=== PATIENT | female | born 1975 | race Caucasian/White ===

== ENCOUNTER 2019-06-14 17:35 | Emergency (ER) | payer MEDICAID ==
[~2019-06-14] VITALS: Ht 162.6 cm; Wt 63.5 kg
[2019-06-14 17:39] VITALS: BP 112/81
--- NOTE | 2019-06-14 18:25 | Emergency Room Report ---
History of Present Illness General Chief Complaint: Alcohol Intoxication Source: Patient (Wen Guzman) Present Illness HPI 44-year-old female presents to the emergency department brought by ambulance for acute alcohol intoxication. Patient reports that she habitually drinks heavily and that she was drinking earlier today. Patient states she was recently told that she has cirrhosis of the liver. Patient denies abdominal pain she denies trauma or fall, nausea, vomiting, fevers or chills. Patient states that she recently was diagnosed with a UTI as well and was unable to fill the prescription for Keflex. Patient denies illicit drug use. She denies open wounds, bruises or areas of infection. She denies neck or back pain and denies headache or confusion. Patient states she has some mild tenderness along the right side of the ribs where she was recently diagnosed with rib cage contusion. No other aggravating or relieving factors at this time. Patient denies SI or HI she denies previous psychiatric hospitalizations and states she is not currently on any medications nor she supposed to be taking any medications. She reports she was accepted to [facility] but is not familiar with how to get there. She denies urinary frequency, urgency, hematuria or dysuria. (Wen Guzman) Allergies: Coded Allergies: ACETAMINOPHEN (Verified Allergy, Unknown, 06/14/19) HYDROCODONE (Verified Allergy, Unknown, 06/14/19) Patient History Past Medical History: see triage record Past Surgical History: none Pertinent Family History: none Now: No Reviewed Nursing Documentation: PMH: Agreed; PSxH: Agreed (Wen Guzman) Review of Systems All Other Systems: negative except mentioned in HPI (Wen Guzman) Physical Exam Vital Signs Date Time Temp Pulse Resp B/P (MAP) Pulse Ox O2 Delivery O2 Flow Rate FiO2 06/14/19 17:30 97.9 81 16 112/81 (91) 99 Room Air Sp02 EP Interpretation: reviewed, normal General Appearance: no apparent distress, alert, GCS 15, non-toxic Head: normocephalic, atraumatic Eyes: bilateral eye normal inspection, bilateral eye PERRL ENT: hearing grossly normal, normal voice Neck: full range of motion, no bony tend Respiratory: lungs clear, normal breath sounds, speaking full sentences, other - ttp lateral right ribs. no flail chest. CTA bilat Cardiovascular #1: regular rate, rhythm, normal capillary refill Gastrointestinal: normal bowel sounds, non tender, soft, non-distended, no guarding Genitourinary: normal inspection, no CVA tenderness Musculoskeletal: back normal, normal range of motion, gait/station normal, non- tender Neurologic: alert, motor strength/tone normal, oriented x3 - Pt. able to answer complex questions with sufficient amount of detail despite being clinically inebriated, sensory intact, responsive, speech normal Psychiatric: judgement/insight normal, no suicidal/homicidal ideation, no delusions Skin: no rash, normal color, normal inspection Lymphatic: no adenopathy (Wen Guzman) Medical Decision Making PA Attestation Dr. Vaz is my supervising Physician whom patient management has been discussed with. Homeless Attestation I, The treating provider, Wen MELÉNDEZ, has assessed and agrees that patient is medically stable for discharge to an outpatient disposition. (Wen Guzman) Diagnostic Impression: Primary Impression: UTI (urinary tract infection) Qualified Codes: N30.01 - Acute cystitis with hematuria Additional Impression: Acute alcoholic intoxication Qualified Codes: F10.920 - Alcohol use, unspecified with intoxication, uncomplicated ER Course 44-year-old female presents to the emergency department brought by ambulance for acute alcohol intoxication. Patient reports that she habitually drinks heavily and that she was drinking earlier today. Patient states she was recently told that she has cirrhosis of the liver. Patient denies abdominal pain she denies trauma or fall, nausea, vomiting, fevers or chills. Patient states that she recently was diagnosed with a UTI as well and was unable to fill the prescription for Keflex. Patient denies illicit drug use. She denies open wounds, bruises or areas of infection. She denies neck or back pain and denies headache or confusion. Patient states she has some mild tenderness along the right side of the ribs where she was recently diagnosed with rib cage contusion. No other aggravating or relieving factors at this time. Patient denies SI or HI she denies previous psychiatric hospitalizations and states she is not currently on any medications nor she supposed to be taking any medications. She reports she was accepted to [facility] but is not familiar with how to get there. She denies urinary frequency, urgency, hematuria or dysuria. Ddx considered but are not limited to ETOH, Trauma, Syncope, dementia, OD Vital signs: are WNL, pt. is afebrile H&PE are most consistent with ETOH abuse. --pt. is NAD, pt. is alert, no obvious signs of trauma, able to ambulate to the water fountain and bathroom and back to her room on her own without assistance. ORDERS: -UA: POSITIVE FOR UTI -CBC: WNL -CMP: Elevated AST c/w alcoholic hepatitis. -Serum ETOH: 357 ED INTERVENTIONS: -Keflex PO Observance while she detoxifies. Pt. was allowed to sleep/rest. PT. became awake and alert x 3 Pt. is given multiple pages of homeless and alcohol rehabilitation services resource information. She is also given a small quantity of Keflex. DISCHARGE: At this time pt. is stable for d/c to home. Will provide printed patient care instructions, and any necessary prescriptions. Care plan and follow up instructions have been discussed with the patient prior to discharge. Labs Test 06/14/19 18:30 06/14/19 18:33 Urine Color Pale yellow Urine Appearance Cloudy Urine pH 6.5 (4.5-8.0) Urine Specific [place] 1.005 (1.005-1.035) Urine Protein Negative (NEGATIVE) Urine Glucose (UA) Negative (NEGATIVE) Urine Ketones Negative (NEGATIVE) Urine Blood 2+ (NEGATIVE) Urine Nitrite Negative (NEGATIVE) Urine Bilirubin Negative (NEGATIVE) Urine Urobilinogen Normal MG/DL (0.0-1.0) Urine Leukocyte Esterase 3+ (NEGATIVE) Urine RBC 5-10 /HPF (0 - 2) Urine WBC Tntc /HPF (0 - 2) Urine Squamous Epithelial Cells Moderate /LPF (NONE/OCC) Urine Bacteria Moderate /HPF (NONE) White Blood Count 9.0 K/UL (4.8-10.8) Red Blood Count 4.51 M/UL (4.20-5.40) Hemoglobin 11.7 G/DL (12.0-16.0) Hematocrit 37.7 % (37.0-47.0) Mean Corpuscular Volume 84 FL (80-99) Mean Corpuscular Hemoglobin 25.9 PG (27.0-31.0) Mean Corpuscular Hemoglobin Concent 30.9 G/DL (32.0-36.0) Red Cell Distribution Width 17.9 % (11.6-14.8) Platelet Count 259 K/UL (150-450) Mean Platelet Volume 5.1 FL (6.5-10.1) Neutrophils (%) (Auto) 62.7 % (45.0-75.0) Lymphocytes (%) (Auto) 32.0 % (20.0-45.0) Monocytes (%) (Auto) 3.4 % (1.0-10.0) Eosinophils (%) (Auto) 0.8 % (0.0-3.0) Basophils (%) (Auto) 1.2 % (0.0-2.0) Sodium Level 143 MMOL/L (136-145) Potassium Level 3.4 MMOL/L (3.5-5.1) Chloride Level 106 MMOL/L (98-107) Carbon Dioxide Level 24 MMOL/L (21-32) Anion Gap 13 mmol/L (5-15) Blood Urea Nitrogen 6 mg/dL (7-18) Creatinine 0.7 MG/DL (0.55-1.30) Estimat Glomerular Filtration Rate > 60 mL/min (>60) Glucose Level 88 MG/DL (74-106) Calcium Level 8.5 MG/DL (8.5-10.1) Total Bilirubin 0.3 MG/DL (0.2-1.0) Aspartate Amino Transf (AST/SGOT) 149 U/L (15-37) Alanine Aminotransferase (ALT/SGPT) 86 U/L (12-78) Alkaline Phosphatase 150 U/L (46-116) Total Protein 7.6 G/DL (6.4-8.2) Albumin 2.8 G/DL (3.4-5.0) Globulin 4.8 g/dL Albumin/Globulin Ratio 0.6 (1.0-2.7) Serum Alcohol 352 mg/dL (Wen Guzman) ER Course Patient signed out to me. She presents with alcohol intoxication. She slept through the night. Now awake. No slurred speech. Walking without any problem. Not suicidal or homicidal. No criteria for 5150. (Uvaldo Arteaga MD) Last Vital Signs Date Time Temp Pulse Resp B/P (MAP) Pulse Ox O2 Delivery O2 Flow Rate FiO2 06/14/19 17:39 81 16 Room Air 06/14/19 17:39 97.9 112/81 99 Status: improved (Wen Guzman) Status: improved (Uvaldo Arteaga MD) Disposition: HOME, SELF-CARE Condition: Improved Scripts Cephalexin* (KEFLEX*) 500 Mg Capsule 500 MG ORAL EVERY 12 HOURS for 7 Days, #14 CAP 0 Refills Prov: Wen Guzman 06/14/19 Referrals: NOT CHOSEN IPA/,REFERRING (PCP) Patient Instructions: Alcoholic Liver Disease, Alcohol Use Disorder Additional Instructions: Take medications as directed. _ Refrain from Excessive ALCOHOL CONSUMPTION Follow up with a Primary Care Provider in 3-5 days, even if your symptoms have resolved. --Please review list of primary care clinics, if you do not already have a primary care provider --Please review list of Alcohol Dependence Resources and Shelters Return sooner to ED if new symptoms occur, or current symptoms become worse. - Please note that this Emergency Department Report was dictated using [employer] of the legislative assembly technology software, occasionally this can lead to erroneous entry secondary to interpretation by the dictation equipment. Wen Guzman Jun 14, 2019 18:25 Uvaldo Arteaga MD Jun 15, 2019 04:00
[2019-06-14 18:40] LABS: BASOPHILS % (AUTO) 1.2 % (0.0-2.0); EOSINOPHILS % (AUTO) 0.8 % (0.0-3.0); HEMATOCRIT 37.7 % (37.0-47.0); HEMOGLOBIN 11.7 G/DL (12.0-16.0); MEAN CORPUSCULAR VOLUME 84 FL (80-99); MONOCYTES % (AUTO) 3.4 % (1.0-10.0); NEUTROPHILS % (AUTO) 62.7 % (45.0-75.0); PLATELET COUNT 259 K/UL (150-450); RED BLOOD COUNT 4.51 M/UL (4.20-5.40); RED CELL DISTRIBUTION WIDTH 17.9 % (11.6-14.8)
[2019-06-14 18:51] LABS: APPEARANCE,URINE CLOUDY; BILIRUBIN, URINE NEGATIVE (NEGATIVE); COLOR,URINE PALE YELLOW; GLUCOSE, URINE (UA) NEGATIVE (NEGATIVE); KETONES,URINE NEGATIVE (NEGATIVE); LEUKOCYTE ESTERASE ,URINE 3+ (NEGATIVE); NITRITE,URINE NEGATIVE (NEGATIVE); PH,URINE 6.5 (4.5-8.0); PROTEIN,URINE NEGATIVE (NEGATIVE); UROBILINOGEN,URINE NORMAL MG/DL (0.0-1.0)
[2019-06-14 18:56] LABS: ANION GAP 13 mmol/L (5-15); BLOOD UREA NITROGEN 6 mg/dL (7-18); CALCIUM 8.5 MG/DL (8.5-10.1); CARBON DIOXIDE 24 MMOL/L (21-32); CHLORIDE 106 MMOL/L (98-107); CREATININE 0.7 MG/DL (0.55-1.30); POTASSIUM 3.4 MMOL/L (3.5-5.1); SODIUM 143 MMOL/L (136-145)
[2019-06-14 19:02] LABS: ALANINE AMINOTRANSFERASE 86 U/L (12-78); ALBUMIN 2.8 G/DL (3.4-5.0); ALBUMIN/GLOBULIN RATIO 0.6 (1.0-2.7); ALKALINE PHOSPHATASE 150 U/L (46-116); ASPARTATE AMINO TRANSFERASE 149 U/L (15-37); BILIRUBIN,TOTAL 0.3 MG/DL (0.2-1.0)
[2019-06-14 19:30] VITALS: BP 115/72
[2019-06-14] MEDS ORDERED: Cephalexin 500mg cap ORAL ONE (19:30)
[2019-06-14] MEDS ORDERED: CEPHALEXIN500 MG ORAL (21:16)
[2019-06-14 22:16] VITALS: BP 121/75
[2019-06-15 01:20] VITALS: BP 119/69
[2019-06-15 06:24] VITALS: BP 143/87
[2019-06-15 06:30] VITALS: BP 143/87
== END 2019-06-15 06:30 | disposition home or self-care (01) ==
LOC: EDBD 17:35 → EMR 18:03
DX: N30.01 Acute cystitis with hematuria (principal); F10.920 Alcohol use, unspecified with intoxication, uncomplicated; Z88.6 Allergy status to analgesic agent; Z88.5 Allergy status to narcotic agent
CPT/HCPCS: 36415; 80053; 81001; 85025; 87086; G0480; Z7502; 99284

== ENCOUNTER 2019-06-15 12:50 | Emergency (ER) | payer MEDICAID ==
[~2019-06-15] VITALS: Ht 162.6 cm; Wt 63.5 kg
[2019-06-15 12:50] VITALS: BP 121/78
[~2019-06-15 12:50] MED LIST: CEPHALEXIN500 MG ORAL
--- NOTE | 2019-06-15 14:06 | Emergency Room Report ---
History of Present Illness General Chief Complaint: Alcohol Intoxication Source: Patient Present Illness HPI 44-year-old female with history of alcohol abuse brought in by the paramedics due to complaining of ingesting a lot of alcohol. Upon arrival patient screams and states that she told the paramedics not to come here as she was just discharged from [facility] early this morning. Patient does admit to drinking alcohol. Denies drug use. Denies pain, chest pain, shortness of breath, palpitation, and other associated symptoms. Patient is extremely rude to the staff, and is not allowing her nurse to start an IV line in her. Patient then eloped before IV was started Allergies: Coded Allergies: ACETAMINOPHEN (Verified Allergy, Unknown, 06/15/19) HYDROCODONE (Verified Allergy, Unknown, 06/14/19) Patient History Past Medical History: see triage record Past Surgical History: none Pertinent Family History: none Social History: Reports: alcohol use Now: No Immunizations: UTD Reviewed Nursing Documentation: PMH: Agreed; PSxH: Agreed Nursing Documentation-PMH Past Medical History: No History, Except For Review of Systems All Other Systems: negative except mentioned in HPI Physical Exam Vital Signs Date Time Temp Pulse Resp B/P (MAP) Pulse Ox O2 Delivery O2 Flow Rate FiO2 06/15/19 12:48 98.8 94 17 142/82 (102) 99 Room Air Sp02 EP Interpretation: reviewed, normal General Appearance: other - alcohol use Head: normocephalic, atraumatic Eyes: bilateral eye normal inspection, bilateral eye PERRL ENT: hearing grossly normal, normal pharynx, no angioedema, normal voice Neck: full range of motion, supple, thyroid normal, no meningismus, supple/symm /no masses Respiratory: chest non-tender, lungs clear, normal breath sounds, no rhonchi, no wheezing, speaking full sentences Cardiovascular #1: regular rate, rhythm, no edema, no murmur, normal capillary refill Gastrointestinal: non tender, soft Rectal: deferred Genitourinary: no CVA tenderness Musculoskeletal: back normal Neurologic: alert, motor strength/tone normal, oriented x3, sensory intact, responsive, speech normal Psychiatric: judgement/insight normal, memory normal, mood/affect normal Skin: no rash Lymphatic: no adenopathy Medical Decision Making PA Attestation All diagnoses and treatment plans were reviewed and discussed with my supervising physician Dr. Diaz Diagnostic Impression: Primary Impression: Eloped from emergency department ER Course 44-year-old female with history of alcohol abuse brought in by the paramedics due to complaining of ingesting a lot of alcohol. Upon arrival patient screams and states that she told the paramedics not to come here as she was just discharged from [facility] early this morning. Patient does admit to drinking alcohol. Denies drug use. Denies pain, chest pain, shortness of breath, palpitation, and other associated symptoms. Patient is extremely rude to the staff, and is not allowing her nurse to start an IV line in her. Patient then eloped before IV was started Ddx considered but are not limited to: generalized anxiety disorder, panic attack, depression with psychotic feature, bipolar disorder, drug overdose Vital signs: are WNL, pt. is afebrile H&PE are most consistent with: eloped, Alcohol use ORDERS: EtOH, tox screen ED INTERVENTIONS: NS bolus Since patient had a complete blood work earlier this morning no further blood work or imaging needed at this time. Patient eloped before IV line was started Last Vital Signs Date Time Temp Pulse Resp B/P (MAP) Pulse Ox O2 Delivery O2 Flow Rate FiO2 06/15/19 12:50 82 18 Room Air 06/15/19 12:50 98.1 121/78 06/15/19 12:48 99 Disposition: ELOPED Condition: Stable Referrals: NOT CHOSEN IPA/,REFERRING (PCP) Josie Hernandes Jun 15, 2019 14:06
[2019-06-15 14:28] VITALS: BP 121/78
== END 2019-06-15 14:28 | disposition home or self-care (01) ==
LOC: EDBD 12:50 → EMR 13:00
DX: F10.129 Alcohol abuse with intoxication, unspecified (principal); Z88.6 Allergy status to analgesic agent; Z88.5 Allergy status to narcotic agent; Z53.29 Procedure and treatment not carried out because of patient's decision for other reasons
CPT/HCPCS: 36415; 80307; G0480; Z7502; 99283; J2405

== ENCOUNTER 2019-06-15 17:36 | Emergency (ER) | payer MEDICAID ==
[~2019-06-15] VITALS: Ht 162.6 cm; Wt 68.0 kg
[2019-06-15 17:36] VITALS: BP 101/70
[2019-06-15 20:30] VITALS: BP 102/69
[2019-06-15 21:23] VITALS: BP 102/69
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
== END 2019-06-15 21:23 | disposition home or self-care (01) ==
LOC: EDBD 17:36 → EMR 18:00
DX: F10.929 Alcohol use, unspecified with intoxication, unspecified (principal); I48.91 Unspecified atrial fibrillation; Z88.6 Allergy status to analgesic agent; Z88.5 Allergy status to narcotic agent
CPT/HCPCS: 99282

== ENCOUNTER 2019-06-16 02:56 | Emergency (ER) | payer MEDICAID ==
[~2019-06-16] VITALS: Ht 162.6 cm; Wt 68.0 kg
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
[2019-06-16 03:04] VITALS: BP 136/90
--- NOTE | 2019-06-16 03:05 | NUR ---
ED Nurse Note: pt reports "you'd be proud of me, I didn't drink anything this time." she doest not appear to be in any distress, breathing is even and non-labored, pt lying in bed with eyes closed. will continue to monitor
--- NOTE | 2019-06-16 03:19 | Emergency Room Report ---
History of Present Illness General Chief Complaint: General Complaint Source: Patient Present Illness HPI Is a 44-year-old female who is an alcoholic. She also homeless. She was brought in by EMS with chief complaint of altered mental status. Patient has no complaints here. She states she was at [facility] and they called 911. Per EMS he did not leave the facility still they called 911. Patient says she was go to hospital. Here she denies it. Patient says she was not being belligerent or causing any problem. She is want to stay there. She denies suicidal thoughts homicidal thoughts he denies any pain. Allergies: Coded Allergies: ACETAMINOPHEN (Verified Allergy, Unknown, 06/15/19) HYDROCODONE (Verified Allergy, Unknown, 06/14/19) Patient History Past Medical History: see triage record, old chart reviewed Past Surgical History: other Pertinent Family History: none Social History: Reports: alcohol use Now: No Immunizations: other Reviewed Nursing Documentation: PMH: Agreed; PSxH: Agreed Nursing Documentation-PMH Hx Cardiac Problems: Yes - AFIB; SUBSTANCE ABUSE Review of Systems Eye: Denies: eye pain, blurred vision ENT: Denies: ear pain, nose congestion, throat swelling Respiratory: Denies: cough, shortness of breath Cardiovascular: Denies: chest pain, palpitations Gastrointestinal: Denies: abdominal pain, diarrhea, nausea, vomiting Musculoskeletal: Denies: back pain, joint pain Skin: Denies: rash Neurological: Denies: headache, numbness Endocrine: Denies: increased thirst, increased urine Hematologic/Lymphatic: Denies: easy bruising All Other Systems: negative except mentioned in HPI Physical Exam Vital Signs Date Time Temp Pulse Resp B/P (MAP) Pulse Ox O2 Delivery O2 Flow Rate FiO2 06/16/19 02:54 98.2 86 18 136/90 (105) 98 Room Air Vitals unremarkable Sp02 EP Interpretation: reviewed, normal General Appearance: well appearing, no apparent distress, alert Head: normocephalic, atraumatic Eyes: bilateral eye PERRL, bilateral eye EOMI ENT: hearing grossly normal, normal pharynx Neck: full range of motion, supple, no meningismus Respiratory: chest non-tender, lungs clear, normal breath sounds Cardiovascular #1: regular rate, rhythm, no murmur Gastrointestinal: normal bowel sounds, non tender, no mass, no organomegaly, no bruit, non-distended Musculoskeletal: back normal, normal range of motion, gait/station normal Psychiatric: mood/affect normal Medical Decision Making Diagnostic Impression: Primary Impression: Encounter for generalized patient complaints ER Course Patient here with generalized complaint. She is want a place to sleep. He denies suicidal thoughts homicidal thought. Her speech is clear. No evidence of any intoxication. No evidence any withdrawal symptoms. Will discharge home in the morning. Last Vital Signs Date Time Temp Pulse Resp B/P (MAP) Pulse Ox O2 Delivery O2 Flow Rate FiO2 06/16/19 03:04 98.2 86 18 136/90 98 Room Air Status: improved Disposition: HOME, SELF-CARE Condition: Stable Additional Instructions: Follow-up with rehab. Follow-up with your doctor in 7 days. Abstain from alcohol. Return if worse. Uvaldo Arteaga MD Jun 16, 2019 03:19
--- NOTE | 2019-06-16 05:25 | NUR ---
ED Nurse Note: pt is lying in bed with eyes closed and snoring. her breathing is even and non-labored, she does not appear to be in any distress at this time. will continue to monitor pt
[2019-06-16 05:27] VITALS: BP 130/87
[2019-06-16 06:06] VITALS: BP 130/87
--- NOTE | 2019-06-16 06:06 | NUR ---
ER DISCHARGE NOTE: Patient is cleared to be discharged per ERMD, pt is aox4, on room air, with stable vital signs. pt was given dc and prescription instructions, pt was able to verbalize understanding, pt id band removed without complications. pt is able to ambulate with steady gait. pt took all belongings.
== END 2019-06-16 06:06 | disposition home or self-care (01) ==
LOC: EDBD 02:56 → EMR 03:16
DX: R41.82 Altered mental status, unspecified (principal); Z59.0 Homelessness; Z88.6 Allergy status to analgesic agent
CPT/HCPCS: 99281